=== PATIENT | female | born 1935 | race Caucasian/White ===

== ENCOUNTER 2017-02-15 21:39 | Inpatient (IN) | payer MEDICARE, MEDICAID ==
[~2017-02-15] VITALS: Ht 165.1 cm; Wt 70.3 kg
--- NOTE | 2017-02-15 22:09 | NUR ---
LAB AT BEDSIDE PER MD ORDERS.
--- NOTE | 2017-02-15 22:29 | NUR ---
PT BIB PRIVATE AMBULANCE FROM SNF FOR MEDICAL CLEARANCE FOR JOSE. VSS/RESP EVEN AND UNLABORED/NAD NOTED/SKIN WARM AND DRY. EMT'S STATES PT WAS HITTING OTHER RESIDENTS AND BEING AGRESSIVE WITH STAFF.
[2017-02-15] MEDS ORDERED: OLANZAPINE 5 MG/TAB.RAPDIS ONE (22:33)
[2017-02-15 22:37] LABS: BASOPHILS % (AUTO) 0.4 % (0.0-2.0); EOSINOPHILS % (AUTO) 0.3 % (0.0-6.0); HEMATOCRIT 47 % (33-45); HEMOGLOBIN 15.5 g/dL (11.5-14.8); LYMPHOCYTES # (AUTO) 3.1 /CMM (0.8-4.8); LYMPHOCYTES % (AUTO) 31.8 % (20.0-44.0); MEAN CORPUSCULAR HEMOGLOBIN 30 PG (26.0-33.0); MEAN CORPUSCULAR HGB CONC 33 g/dl (31.0-36.0); MEAN CORPUSCULAR VOLUME 90 fL (82-100); MONOCYTES # (AUTO) 1.9 /CMM (0.1-1.30); MONOCYTES % (AUTO) 19.8 % (2.0-12.0); NEUTROPHILS # (AUTO) 4.6 /CMM (1.8-8.9); NEUTROPHILS % (AUTO) 47.7 % (43.0-81.0); PLATELET COUNT (AUTO) 167 /CMM (150-450); RDW COEFFICIENT OF VARIATION 14.3 (11.5-15.0); RED BLOOD CELL COUNT(AUTO) 5.18 MIL/uL (4.0-5.2); WHITE BLOOD COUNT (AUTO) 9.7 K/uL (4.3-11.0)
[2017-02-15 22:38] LABS: CALCIUM, SERUM 9.4 mg/dL (8.5-10.1); CARBON DIOXIDE 26 mmol/L (21-32); CHLORIDE 107 mmol/L (98-107); GLUCOSE 177 mg/dL (74-106); SODIUM SERUM 144 mmol/L (136-145); UREA NITROGEN, BLOOD 24 mg/dL (7-18)
[2017-02-15 22:43] LABS: ALANINE AMINOTRANSFERASE 30 U/L (12-78); ALBUMIN 4.1 g/dL (3.4-5.0); ALCOHOL, BLOOD < 3 mg/dL (0-0); ALKALINE PHOSPHATASE 69 U/L (46-116); ASPARTATE AMINOTRANSFERASE 21 U/L (15-37); BILIRUBIN,DIRECT 0.2 mg/dL (0.0-0.2); BILIRUBIN,TOTAL 1.1 mg/dL (0.2-1.0); TOTAL PROTEIN, SERUM 8.6 g/dL (6.4-8.2)
[2017-02-15 22:47] LABS: ACETAMINOPHEN 0 ug/ml (10-30); SALICYLATE 1.3 mg/dL (2.8-20.0)
[2017-02-15] MEDS ORDERED: LORAZEPAM INJ 2 MG/ML VIAL ONE (22:54)
[2017-02-15] MEDS ORDERED: LORAZEPAM INJ 2 MG/ML VIAL IM ONE (23:00)
[2017-02-15] MEDS ORDERED: OLANZAPINE 5 MG/TAB.RAPDIS PO ONE (23:00)
[2017-02-15 23:49] LABS: LYMPHOCYTES % (MANUAL) 29 % (16-48); MONOCYTES % (MANUAL) 17 % (0-11.0); NEUTROPHILS % (MANUAL) 54 (42-76)
--- NOTE | 2017-02-15 23:57 | NUR ---
16 FR IN AND OUT CATH USING IN SHOP SERVICE TECHNICIAN, OBTAINED URINE SAMPLE AND SENT TO LAB PER MD ORDERS.
[2017-02-16 00:20] LABS: APPEARANCE,URINE SL CLOUDY (CLEAR); BILIRUBIN,URINE NEGATIVE (NEGATIVE); BLOOD, URINE 1+ Ery/uL (NEGATIVE); COLOR,URINE DARK YELLO (YELLOW); KETONES,URINE 2+ (NEGATIVE); LEUKOCYTE ESTERASE ,URINE 1+ (NEGATIVE); NITRITE, URINE POSITIVE (NEGATIVE); PROTEIN,URINE 2+ mg/dl (NEGATIVE); UGLUCOSE NEGATIVE (NEGATIVE)
[2017-02-16 00:41] LABS: BACTERIA,URINE Few /HPF (None Seen); SQUAMOUS EPITHELIAL CELL,UR Few /HPF (None Seen)
[2017-02-16] MEDS ORDERED: CEFTRIAXONE 1GM BAG (ER ONLY) 1 GM/50 ML PIGGYBACK IV ONE (01:00)
[2017-02-16] MEDS ORDERED: CEFTRIAXONE 1GM BAG (ER ONLY) 50 ML IV ONE (01:03)
--- NOTE | 2017-02-16 01:24 | NUR ---
PT BEING ADMIT TO [facility] BED 215, REPORT GIVEN TO MANDIE STORY.
[2017-02-16] MEDS ORDERED: DOCU-170 PO (01:26)
[2017-02-16] MEDS ORDERED: GEMF600T3 PO (01:26)
[2017-02-16] MEDS ORDERED: BENA20TA2 PO (01:26)
[2017-02-16] MEDS ORDERED: METF10002 PO (01:26)
[2017-02-16] MEDS ORDERED: LEVO50TA8 PO (01:26)
[2017-02-16] MEDS ORDERED: AMLO5TAB2 PO (01:26)
[2017-02-16] MEDS ORDERED: CALC500T51 PO (01:26)
[2017-02-16 02:00] VITALS: BP 107/64
[2017-02-16] MEDS ORDERED: MAG HYDROX/AL HYDROX/SIMETH 30 ML UDC PO PRN (02:00)
[2017-02-16] MEDS ORDERED: ACETAMINOPHEN 325 MG TABLET PO PRN (02:00)
[2017-02-16] MEDS ORDERED: TEMAZEPAM 7.5 MG CAPSULE PO PRN (02:00)
[2017-02-16] MEDS ORDERED: MAGNESIUM HYDROXIDE 30 ML UDC PO PRN (02:00)
--- NOTE | 2017-02-16 03:47 | NUR ---
GPS LINER ROLL CHANGER NOTES: ADMITTED A 81/ FEMALE FROM [facility] ON 5150 HOLD FOR DTO. PER HOLD THE PATIENT WAS AGITATED,TALKING NONSENSE, HITTING STAFF AND OTHER RESIDENTS IN THE ASSISTED, , HARMING OTHER MEDICALLY FRAGILE RESIDENTS BY REMOVING THEIR OXYGEN MASKS. PATIENT WILL BE UNDER THE CARE OF DR. CALDERÓN AND DR. KILGORE. PATIENT USHERED FROM GURNEY TO BED. UPON FACE TO FACE ASSESSMENT, PATIENT PRESENTS ALERT AND ORIENTED X1. NOTED TO BE CONFUSED, MUMBLING NON SENSICAL STUFF. PATIENT IS DISHEVELED, UNKEMPT, UNTIDY, DISORGANIZED, EASILY AGITATED, UNPREDICTABLE. REALITY ORIENTATION DONE. SKIN AND BODY ASSESSMENT DONE WITH VALERIE LUCIANO. PICTURES TAKEN AND PLACED IN THE CHART. BELONGINGS AND CONTRABAND CHECKED. Q15 MIN CHECKS INITIATED. CARE PLAN PATIENT SPECIFIC CARRIED OUT. WILL INFORM FAMILY OF PATIENTS ADMITTANCE TO THE UNIT. PATIENT CHANGED TO HER GOWN FOR COMFORT, BED IN LOW AND LOCKED POSITION. ENVIRONMENTAL SAFETY CHECK DONE. WILL MONITOR PATIENT FOR MOOD, SAFETY AND BEHAVIOR.
[2017-02-16] MEDS ORDERED: Z GUARD REMEDY 4 OZ OINT TP PRN (06:00)
--- NOTE | 2017-02-16 06:29 | NUR ---
GPS RN NOTE, PATIENT NEEDS A ACCU CHECK ORDER AND MED RECON. PAGED [facility] AND INFORMED DR MAGUI JIANG OF MY FINDINGS. DR MAGUI JIANG ORDERED TO DUE ACCU CHECK AC HS WITHOUT INSULIN COVERAGE AND SAID HE WILL DO THIS PATIENTS MED RECON. ALL ORDERS NOTED AND CARRIED OUT. WILL CONTINUE TO MONITOR THIS PATIENT.
[2017-02-16] MEDS: LEVOTHYROXINE SODIUM 50 MCG TABLET PO SCH (07:30)
[2017-02-16] MEDS: BLOOD SUGAR DIAGNOSTIC 1 EACH STRIP IN SCH ×4 (07:30→21:53)
[2017-02-16 08:00] VITALS: BP 163/88
--- NOTE | 2017-02-16 08:09 | NUR ---
GPS RN NOTE PATIENT REFUSING ACCUCHECK AND PO MEDICATIONS AT THIS TIME. PATIENT REFUSING ANY PO INTAKE. PATIENT REFUSING TO LISTEN TO ANYONE SPEAKING WITH HER. KICKS, BITS, TRIES TO BITE AND SPIT STAFF. PATIENT IS CALM WHEN SHE IS LEFT ALONE.
[2017-02-16] MEDS: METFORMIN 500 MG TABLET PO SCH ×2 (09:00→17:50)
[2017-02-16] MEDS: CALCIUM CARBONATE (1250) 500 MG TABLET PO SCH (09:00)
[2017-02-16] MEDS: DOCUSATE SODIUM 100 MG CAPSULE PO SCH (09:00)
[2017-02-16] MEDS: AMLODIPINE BESYLATE 5 MG TABLET PO SCH (09:00)
[2017-02-16] MEDS: BENAZEPRIL HCL 20 MG TABLET PO SCH (09:00)
[2017-02-16] MEDS: GEMFIBROZIL 600 MG TABLET PO SCH (09:00)
--- NOTE | 2017-02-16 09:11 | NUR ---
GPS RN NOTES PATIENT STILL REFUSING ALL PO MEDICATIONS. BECOMES AGITATED AND COMBATIVE WITH ANY COMMUNICATION
--- NOTE | 2017-02-16 09:27 | NUR ---
GPS RN NOTES PATIENT IS STILL REFUSING ALL ORAL PO MEDICATIONS AND INTAKE. WILL NOTIFY MD ON EVAL
[2017-02-16 09:28] VITALS: BP 152/82
--- NOTE | 2017-02-16 10:00 | NUR ---
GPS RN NOTES DR PAMELA HODGSON AT PATIENT SIDE. MD UPDATED ON PATIENT CONDITION. REFUSAL OF ANY ORAL INTAKE FOOD, WATER, OR MEDS AND PATIENT COMBATIVENESS. MD AWARE PATIENT POSITIVE FOR UTI AND UNABLE TO GIVE ANY ORAL AX ORDERED. PER MD HE WILL FOLLOW UP. NO ORDERS AT THIS TIME
--- NOTE | 2017-02-16 10:33 | NUR ---
GPS RN NOTES PATIENT IS MORE CALM AT THIS TIME. WILL NOT ALLOW ANYONE TO TOUCH HER HOWEVER SHE IS NOT YELLING AT STAFF AT THIS TIME.
--- NOTE | 2017-02-16 11:58 | NUR ---
GPS RN NOTES ATTEMPTED BLOOD SUGAR CHECK FOR PATIENT HOWEVER PATIENT IS STILL COMBATIVE AND HIT ME. DR CALDERÓN UPDATED ON PATIENT CONDITION AND REFUSAL FOR ANY MEDICATIONS
--- NOTE | 2017-02-16 14:00 | NUR ---
GPS RN NOTE PATIENT SLEEPING IN BED COMFORTABLY AT THIS TIME. NO S/S SOB, DIFFICULTY BREATHING OR PAIN. WILL CONTINUE TO MONITOR. BED ALARM ON
[2017-02-16] MEDS: LORAZEPAM 0.5 MG TABLET PO PRN (14:15)
--- NOTE | 2017-02-16 14:15 | NUR ---
GPS RN NOTES PATIENT AGGITATED AND ANXIOUS PRN ATIVAN GIVEN WITH ASSISTANCE FROM [employer]. PATIENT ALLOWED [employer] TO ASSIST WITH SHOWER.
[2017-02-16 16:00] VITALS: BP 140/85
[2017-02-16] MEDS ORDERED: HALOPERIDOL 1 MG TABLET PO SCH (17:00)
--- NOTE | 2017-02-16 17:06 | NUR ---
GPS RN NOTE PATIENT AGREEABLE TO ACCU CHECK. AT THIS TIME PATIENT REFUSES TO EAT. WILL HOLD INSULIN COVERAGE UNTIL/IF PATIENT EATS
--- NOTE | 2017-02-16 17:52 | NUR ---
GPS RN NOTES PATIENT IS COOPERATIVE AT THIS TIME. ANSWERING QUESTIONS AND THOUGHT PROCESS MORE INTACT. ABLE TO COMMUNICATE NAME AND . PATIENT SITTING UP EATING DINNER. MILD SLIDING SCALE ORDERED PER MD PAMELA HODGSON
[2017-02-16] MEDS ORDERED: DEXTROSE 50%-WATER 50 ML DISP.SYRIN IV PRN (18:00)
[2017-02-16] MEDS: INSULIN REGULAR, HUMAN 100 UNIT/ML 3 ML VIAL SQ PRN (18:28)
--- NOTE | 2017-02-16 19:30 | NUR ---
GPS RN NOTE, RECEIVED PATIENT AWAKE AND IN BED NO S/S OR COMPLAINTS OF PAIN AT THIS TIME. PATIENT IS DISPLAYING NO S/S OF APPARENT DISTRESS AT THIS TIME. PATIENT BREATHING IS UNLABORED WITH EQUAL RISE AND FALL OF THE CHEST. PATIENT IS ALERT AND ORIENTED X1 ON ROOM AIR WITH A SPOO2 95 %. PATIENT IS MED SELECTIVE, CONFUSED, COMBATIVE WITH CARE, DISORGANIZED, AND NEEDS REORIENTATION. PATIENT DENIES SUICIDE IDEATIONS AND HOMICIDAL IDEATIONS AT THIS TIME. PATIENT ASSISTED WITH TURNING AND REPOSITIONING Q2HR AND PRN FOR COMFORT AND CIRCULATION. PATIENT HAS NO NEEDS AT THIS TIME. PATIENT EDUCATED ON THE USE OF THE CALL LOPEZ. PATIENT BED SIDE RAILS UP X 2 FOR SAFETY. PATIENT BED IS LOCKED AND LOW WILL CONTINUE TO MONITOR AND MAINTAIN SAFETY Q15 MIN WITH THE HELP OF STAFF.
[2017-02-16 20:08] VITALS: BP 122/60
[2017-02-16] MEDS: VALPROIC ACID 250 MG/5 ML UDC PO SCH (21:53)
--- NOTE | 2017-02-16 21:53 | NUR ---
GPS RN NOTE, PERFORMED ACCU CHECK ON PATIENT WITH A BLOOD SUGAR RESULT OF 122. GAVE NO INSULIN PER SLIDING SCALE. WILL CONTINUE TO MONITOR THIS PATIENT.
[2017-02-17] MEDS: BLOOD SUGAR DIAGNOSTIC 1 EACH STRIP IN SCH ×4 (07:30→22:00)
[2017-02-17] MEDS: LEVOTHYROXINE SODIUM 50 MCG TABLET PO SCH (07:30)
[2017-02-17 08:00] VITALS: BP 110/69
[2017-02-17] MEDS: AMLODIPINE BESYLATE 5 MG TABLET PO SCH (09:00)
[2017-02-17] MEDS: CALCIUM CARBONATE (1250) 500 MG TABLET PO SCH (09:00)
[2017-02-17] MEDS: BENAZEPRIL HCL 20 MG TABLET PO SCH (09:00)
[2017-02-17] MEDS: VALPROIC ACID 250 MG/5 ML UDC PO SCH ×2 (09:00→21:00)
[2017-02-17] MEDS: GEMFIBROZIL 600 MG TABLET PO SCH (09:00)
[2017-02-17] MEDS: DOCUSATE SODIUM 100 MG CAPSULE PO SCH (09:00)
[2017-02-17] MEDS: METFORMIN 500 MG TABLET PO SCH ×2 (09:00→17:00)
--- NOTE | 2017-02-17 13:11 | NUR ---
Initial Discharge Note: Per son, patient resides at [facility] ([phone]) [address] [place] [address]. mud car worker spoke to patient's son Rajesh Johnson ([phone]) who stated that ideally the plan is for patient to return to [facility]. mud car worker spoke to the arts administrator or manager Areli from [facility] who stated that patient can return when she is stable and her behavior improves. mud car worker will help form a safe and proper discharge.
--- NOTE | 2017-02-17 14:52 | NUR ---
refuge worker asked patient's son Rajesh Johnson ([phone]) to provide conservatorship paperwork. Rajesh stated that he would email it to school social worker. refuge worker will follow-up.
--- NOTE | 2017-02-17 15:22 | NUR ---
social contact worker spoke to Sherine Nguyen, Senior Decorating Kiln Operator (SBN [id number]) [employer] ([phone]) who confirmed that patient's son Rajesh Johnson was granted conservatorship for person only. Sherine emailed professor of social work the paperwork which includes the nature of the proceedings: Hearing on Petition for Appointment of Conservatorship.
--- NOTE | 2017-02-17 15:30 | NUR ---
food service worker hospital attempted to contact patient's son/conservator Rajesh Johnson ([phone]) to obtain his email so that older adult social work specialist may email him the detain and treat paperwork. However, Rajesh was unavailable. food service worker hospital left him a detailed message with direct contact information.
[2017-02-17 15:46] VITALS: BP 115/72
[2017-02-17] MEDS: HALOPERIDOL 1 MG TABLET PO SCH (17:00)
[2017-02-17 19:53] VITALS: BP_SYST 114; BP_SYST 146; BP_DIAS 70; BP_DIAS 80
[2017-02-17] MEDS: NITROFURANTOIN/NITROFURAN MAC 100 MG CAPSULE PO SCH (21:00)
[2017-02-18 07:14] LABS: ALANINE AMINOTRANSFERASE 33 U/L (12-78); ALBUMIN 3.7 g/dL (3.4-5.0); ALKALINE PHOSPHATASE 62 U/L (46-116); ASPARTATE AMINOTRANSFERASE 25 U/L (15-37); BILIRUBIN,TOTAL 0.9 mg/dL (0.2-1.0); CALCIUM, SERUM 9.6 mg/dL (8.5-10.1); CARBON DIOXIDE 23 mmol/L (21-32); CHLORIDE 105 mmol/L (98-107); GLUCOSE 159 mg/dL (74-106); MAGNESIUM 2.1 mg/dL (1.8-2.4); PHOSPHORUS 3.7 mg/dL (2.5-4.9); POTASSIUM 3.6 mmol/L (3.5-5.1); SODIUM SERUM 142 mmol/L (136-145); UREA NITROGEN, BLOOD 34 mg/dL (7-18)
[2017-02-18 07:27] LABS: CHOLESTEROL 153 mg/dL (<200); HDL CHOLESTEROL 24 mg/dL (40-60); LDL 101 mg/dL (0-99); TRIGLYCERIDES 145 mg/dL (30-150)
[2017-02-18] MEDS: BLOOD SUGAR DIAGNOSTIC 1 EACH STRIP IN SCH ×4 (07:30→21:20)
[2017-02-18] MEDS: LEVOTHYROXINE SODIUM 50 MCG TABLET PO SCH (07:30)
--- NOTE | 2017-02-18 07:30 | NUR ---
GPS/RN PATIENT IS AGITATED AND COMBATIVE, ADAMANTLY REFUSED BS CHECK X 3, EXPLAINED RISKS AND BENEFITS HOWEVER, PATIENT IS CONFUSED AND CONTINUES TO REFUSE, WILL CONTINUE TO ENCOURAGE TO COMPLY WITH MD REGIMEN.
[2017-02-18] MEDS: LORAZEPAM 0.5 MG TABLET PO PRN (07:41)
--- NOTE | 2017-02-18 08:00 | NUR ---
GPS/RN PATENT AGITATED, COMBATIVE, REFUSING ALL A.M. MEDICATION X 3, EXPLAINED RISKS AND BENEFITS, WILL CONTINUE TO ENCOURAGE TO COMPLY WITH MD REGIMEN.
--- NOTE | 2017-02-18 08:00 | NUR ---
GPS/RN PATIENT IS AGGRESSIVE, COMBATIVE AND AGITATED, REFUSING TO ALLOW STAFF TO TAKE VITAL SIGNS. WILL CONTINUE TO ENCOURAGE TO COMPLY WITH REGIMEN.
[2017-02-18] MEDS: CALCIUM CARBONATE (1250) 500 MG TABLET PO SCH (09:00)
[2017-02-18] MEDS: GEMFIBROZIL 600 MG TABLET PO SCH (09:00)
[2017-02-18] MEDS: METFORMIN 500 MG TABLET PO SCH ×2 (09:00→16:24)
[2017-02-18] MEDS: VALPROIC ACID 250 MG/5 ML UDC PO SCH ×2 (09:00→21:00)
[2017-02-18] MEDS: BENAZEPRIL HCL 20 MG TABLET PO SCH (09:00)
[2017-02-18] MEDS: AMLODIPINE BESYLATE 5 MG TABLET PO SCH (09:00)
[2017-02-18] MEDS: DOCUSATE SODIUM 100 MG CAPSULE PO SCH (09:00)
[2017-02-18] MEDS: NITROFURANTOIN/NITROFURAN MAC 100 MG CAPSULE PO SCH ×2 (09:00→21:00)
[2017-02-18] MEDS: HALOPERIDOL 1 MG TABLET PO SCH ×2 (09:00→16:24)
--- NOTE | 2017-02-18 12:00 | NUR ---
GPS/RN PATIENT CONTINUES TO BE AGITATED, AGGRESSIVE AND ANXIOUS, ADAMANTLY REFUSED BS CHECK X 3, EXPLAINED RISKS AND BENEFITS, WILL CONTINUE TO ENCOURAGE TO COMPLY WITH MD REGIMEN.
[2017-02-18 16:00] VITALS: BP 122/89
--- NOTE | 2017-02-18 16:25 | NUR ---
GPS/RN PATENT IS AGITATED AND ANXIOUS, REFUSING ALL 1700 MEDICATION X 3, EXPLAINED RISKS AND BENEFITS, WILL CONTINUE TO ENCOURAGE TO COMPLY WITH MD REGIMEN.
--- NOTE | 2017-02-18 17:09 | NUR ---
GPS/RN PATIENT CONTINUES TO ADAMANTLY REFUSE BS CHECK, OFFERED X 3, EXPLAINED RISKS AND BENEFITS,CONTINUES TO REFUSE, WILL CONTINUE TO ENCOURAGE TO COMPLY WITH MD REGIMEN.
[2017-02-18 20:00] VITALS: BP 140/90
--- NOTE | 2017-02-18 21:13 | NUR ---
GPS/STONE BREAKER NOTES: PT. REFUSED ALL HS MEDS. OFFERED 3X. EXPLAINED RISK AND BENEFITS. PT. STILL REFUSED. WILL CONTINUE TO MONITOR.
[2017-02-18] MEDS: INSULIN REGULAR, HUMAN 100 UNIT/ML 3 ML VIAL SQ PRN (21:20)
--- NOTE | 2017-02-18 21:20 | NUR ---
GPS/SLAG MOTOR OPERATOR NOTES: ACCUCHECK DONE. BS NOTED AT 165. PT. REFUSED INSULIN COVERAGE PER SLIDING SCALE ORDERED. OFFERED 3X. EXPLAINED RISK AND BENEFITS. PT. STILL REFUSED.
[2017-02-19] MEDS: LEVOTHYROXINE SODIUM 50 MCG TABLET PO SCH (07:30)
--- NOTE | 2017-02-19 07:43 | NUR ---
[id number]: BLOOD SUGAR IS 139 MG/DL AND REFUSED INSULIN COVERAGE
[2017-02-19] MEDS: BLOOD SUGAR DIAGNOSTIC 1 EACH STRIP IN SCH ×4 (08:01→21:32)
[2017-02-19] MEDS: DOCUSATE SODIUM 100 MG CAPSULE PO SCH (08:43)
[2017-02-19] MEDS: BENAZEPRIL HCL 20 MG TABLET PO SCH (08:44)
[2017-02-19] MEDS: GEMFIBROZIL 600 MG TABLET PO SCH (08:44)
[2017-02-19] MEDS: VALPROIC ACID 250 MG/5 ML UDC PO SCH ×2 (08:44→21:23)
[2017-02-19] MEDS: HALOPERIDOL 1 MG TABLET PO SCH (08:44)
[2017-02-19] MEDS: METFORMIN 500 MG TABLET PO SCH ×2 (08:44→16:07)
[2017-02-19] MEDS: NITROFURANTOIN/NITROFURAN MAC 100 MG CAPSULE PO SCH ×2 (08:44→21:23)
[2017-02-19] MEDS: AMLODIPINE BESYLATE 5 MG TABLET PO SCH (08:45)
[2017-02-19] MEDS: CALCIUM CARBONATE (1250) 500 MG TABLET PO SCH (08:45)
[2017-02-19] MEDS: LORAZEPAM 0.5 MG TABLET PO PRN (11:57)
--- NOTE | 2017-02-19 11:57 | NUR ---
[id number]: GAVE ATIVAN 0.5 MG PO DUE TO INCREASED ANXIETY UPON PT REQUEST AND WILL CONTINUE TO MONITOR FOR EFFECTIVENESS OF MEDICATION
--- NOTE | 2017-02-19 12:00 | NUR ---
[id number]: PT REFUSED BLOOD SUGAR CHECK.
[2017-02-19] MEDS: HALOPERIDOL 5 MG TABLET PO SCH ×2 (13:00→21:23)
--- NOTE | 2017-02-19 15:05 | NUR ---
jet worker attempted (twice) to contact patient's son/conservator Rajesh Johnson ([phone]) to obtain his email so that medical social consultant may email him the detain and treat paperwork. However, Rajesh was unavailable. jet worker left him a detailed message with direct contact information.
--- NOTE | 2017-02-19 16:00 | NUR ---
shop worker spoke to patient's son/conservator Rajesh Johnson , and asked if he could provide an email address so the SW may email the detain and treat form. shop worker emailed the detain and treat form to [email or web address]. shop worker will follow-up.
[2017-02-19] MEDS: INSULIN REGULAR, HUMAN 100 UNIT/ML 3 ML VIAL SQ PRN (16:46)
--- NOTE | 2017-02-19 16:46 | NUR ---
[id number]: BLOOD SUGAR IS 183 MG/DL AND GAVE 3 UNITS OF REGULAR INSULIN
[2017-02-19 20:00] VITALS: BP 145/61
[2017-02-20] MEDS: INSULIN REGULAR, HUMAN 100 UNIT/ML 3 ML VIAL SQ PRN ×2 (00:45→21:41)
--- NOTE | 2017-02-20 00:47 | NUR ---
GPS/RN NOTE: LATE ENTRY: ACCUCHECK 133 MG/DL, 3 UNITS REG. INSULIN SC REFUSED. PATIENT VERY UNCOOPERATIVE. OFFERED X2, STILL REFUSED.
[2017-02-20] MEDS: BLOOD SUGAR DIAGNOSTIC 1 EACH STRIP IN SCH ×4 (07:30→21:39)
[2017-02-20 08:00] VITALS: BP 139/85
--- NOTE | 2017-02-20 08:20 | NUR ---
ms rn patient refused to take bloos sugar, no distress noted.
[2017-02-20] MEDS: GEMFIBROZIL 600 MG TABLET PO SCH (10:13)
[2017-02-20] MEDS: VALPROIC ACID 250 MG/5 ML UDC PO SCH ×2 (10:13→20:52)
[2017-02-20] MEDS: CALCIUM CARBONATE (1250) 500 MG TABLET PO SCH (10:13)
[2017-02-20] MEDS: HALOPERIDOL 5 MG TABLET PO SCH ×2 (10:13→20:52)
[2017-02-20] MEDS: DOCUSATE SODIUM 100 MG CAPSULE PO SCH (10:13)
[2017-02-20] MEDS: METFORMIN 500 MG TABLET PO SCH ×2 (10:13→17:46)
[2017-02-20] MEDS: NITROFURANTOIN/NITROFURAN MAC 100 MG CAPSULE PO SCH ×2 (10:13→20:52)
[2017-02-20] MEDS: AMLODIPINE BESYLATE 5 MG TABLET PO SCH (10:14)
[2017-02-20] MEDS: LEVOTHYROXINE SODIUM 50 MCG TABLET PO SCH (10:14)
[2017-02-20] MEDS: BENAZEPRIL HCL 20 MG TABLET PO SCH (10:14)
--- NOTE | 2017-02-20 12:00 | NUR ---
ms rn refusing again to check blood sugar.
[2017-02-20 16:00] VITALS: BP 149/81
--- NOTE | 2017-02-20 17:20 | NUR ---
ms rn was able to take blood sugar -132 but refused for coverage.
--- NOTE | 2017-02-20 19:51 | NUR ---
GPS/RN NOTE: PATIENT AWAKE, ALERT, CONFUSED, INTERACTS WHEN ENGAGED, NO ACUTE DISTRESS NOTED. HAS 1:1 SITTER FOR SAFETY. ENVIRONMENTAL CHECK DONE AND IS CLEAR OF ANY CONTRABAND. WILL CONTINUE TO MONITOR Q 15 MINS. TO MAINTAIN SAFETY.
[2017-02-20 20:00] VITALS: BP 159/75
--- NOTE | 2017-02-20 21:43 | NUR ---
GPS/RN NOTE: ACCUCHECK 133 MG/DL, 2 UNITS REG. INSULIN SC ADMINISTERED. APPLE JUICE GIVEN.
[2017-02-21] MEDS: BLOOD SUGAR DIAGNOSTIC 1 EACH STRIP IN SCH ×4 (07:47→21:53)
[2017-02-21] MEDS: INSULIN REGULAR, HUMAN 100 UNIT/ML 3 ML VIAL SQ PRN ×2 (07:58→21:56)
--- NOTE | 2017-02-21 07:59 | NUR ---
MEDICAL RECORDS MANAGER-NOTES PATIENT BLOOD SUGAR WAS 145MG/DL, 2 UNITS OF R INSULIN GIVEN ORDERED.
[2017-02-21 08:00] VITALS: BP 148/77
[2017-02-21] MEDS: LEVOTHYROXINE SODIUM 50 MCG TABLET PO SCH (08:29)
[2017-02-21] MEDS: DOCUSATE SODIUM 100 MG CAPSULE PO SCH (09:56)
[2017-02-21] MEDS: CALCIUM CARBONATE (1250) 500 MG TABLET PO SCH (09:56)
[2017-02-21] MEDS: GEMFIBROZIL 600 MG TABLET PO SCH (09:56)
[2017-02-21] MEDS: HALOPERIDOL 5 MG TABLET PO SCH ×2 (09:56→20:57)
[2017-02-21] MEDS: VALPROIC ACID 250 MG/5 ML UDC PO SCH ×2 (09:56→20:57)
[2017-02-21] MEDS: BENAZEPRIL HCL 20 MG TABLET PO SCH (09:57)
[2017-02-21] MEDS: METFORMIN 500 MG TABLET PO SCH ×2 (09:57→17:00)
[2017-02-21] MEDS: AMLODIPINE BESYLATE 5 MG TABLET PO SCH (09:57)
[2017-02-21] MEDS: NITROFURANTOIN/NITROFURAN MAC 100 MG CAPSULE PO SCH ×2 (09:57→20:57)
--- NOTE | 2017-02-21 12:37 | NUR ---
PHOTOENGRAVING SKETCH MAKER-NOTES PATIENT BLOOD SUGAR WAS 203MG/DL,REFUSED 4 UNITS INSULIN COVERAGE DESPITE EXPLANATIONS RISK AND BENEFITS. PATIENT GETS ANGRY AND AGGRESSIVE AT THE BRAKE OPERATOR HEAVY DUTY. OFFERED X3
[2017-02-21] MEDS ORDERED: hydrALAZINE HCL 25 MG TABLET PO PRN (15:30)
[2017-02-21 16:05] VITALS: BP 131/84
--- NOTE | 2017-02-21 17:09 | NUR ---
TEMPORARY STAFF ACCOUNTANT-NOTES PATIENT BLOOD SUGAR WAS 131 MG/DL,REFUSED 2 UNITS INSULIN COVERAGE AND GLUCOPHAGE 100MG P.O EXPLAINED RISK AND BENEFITS BUT PATIENT GETS ANGRY AND AGGRESSIVE AT THE GENERAL FARMWORKER. OFFERED X3
[2017-02-21 20:00] VITALS: BP 144/78
--- NOTE | 2017-02-22 06:52 | NUR ---
RN GPS NOTES REMAINED 1:1 SITTER AT BED SIDE FOR PT. SAFETY , NO ACUTE DISTRESS NOTED, WILL ENDORSE TO NEXT SHIFT FOR CONTINUITY OF CARE .
[2017-02-22] MEDS: LEVOTHYROXINE SODIUM 50 MCG TABLET PO SCH (07:50)
[2017-02-22] MEDS: AMLODIPINE BESYLATE 5 MG TABLET PO SCH ×2 (07:51→08:05)
[2017-02-22] MEDS: BLOOD SUGAR DIAGNOSTIC 1 EACH STRIP IN SCH ×4 (07:57→22:14)
[2017-02-22] MEDS: INSULIN REGULAR, HUMAN 100 UNIT/ML 3 ML VIAL SQ PRN ×4 (07:59→22:16)
--- NOTE | 2017-02-22 07:59 | NUR ---
[id number]: BLOOD SUGAR IS 135 MG /DL AND GAVE 2 UNITS OF REGULAR INSULIN.
[2017-02-22 08:00] VITALS: BP 142/81
[2017-02-22] MEDS: GEMFIBROZIL 600 MG TABLET PO SCH (08:04)
[2017-02-22] MEDS: METFORMIN 500 MG TABLET PO SCH ×2 (08:04→16:40)
[2017-02-22] MEDS: BENAZEPRIL HCL 20 MG TABLET PO SCH (08:04)
[2017-02-22] MEDS: DOCUSATE SODIUM 100 MG CAPSULE PO SCH (08:04)
[2017-02-22] MEDS: NITROFURANTOIN/NITROFURAN MAC 100 MG CAPSULE PO SCH ×2 (08:04→21:23)
[2017-02-22] MEDS: HALOPERIDOL 5 MG TABLET PO SCH ×2 (08:05→21:23)
[2017-02-22] MEDS: CALCIUM CARBONATE (1250) 500 MG TABLET PO SCH (08:05)
[2017-02-22] MEDS: VALPROIC ACID 250 MG/5 ML UDC PO SCH ×2 (08:06→21:23)
--- NOTE | 2017-02-22 11:50 | NUR ---
[id number]: BLOOD SUGAR IS 340 MG/DL AND GAVE 8 UNITS OF REGULAR INSULIN
[2017-02-22 15:15] VITALS: BP 161/102
--- NOTE | 2017-02-22 17:19 | NUR ---
[id number]: BLOOD SUGAR IS 322 MG/DL AND GAVE 8 UNITS OF REGULAR INSULIN
[2017-02-22 19:17] LABS: CALCIUM, SERUM 9.8 mg/dL (8.5-10.1); CARBON DIOXIDE 26 mmol/L (21-32); CHLORIDE 100 mmol/L (98-107); CREATININE 1.2 mg/dL (0.6-1.3); GLUCOSE 319 mg/dL (74-106); MAGNESIUM 1.9 mg/dL (1.8-2.4); PHOSPHORUS 2.4 mg/dL (2.5-4.9); POTASSIUM 3.8 mmol/L (3.5-5.1); SODIUM SERUM 137 mmol/L (136-145); UREA NITROGEN, BLOOD 11 mg/dL (7-18)
[2017-02-22 20:03] VITALS: BP 152/89
[2017-02-22 23:00] VITALS: BP 135/80
[2017-02-23] MEDS: BLOOD SUGAR DIAGNOSTIC 1 EACH STRIP IN SCH ×4 (07:35→22:43)
[2017-02-23] MEDS: INSULIN REGULAR, HUMAN 100 UNIT/ML 3 ML VIAL SQ PRN ×3 (07:36→22:51)
--- NOTE | 2017-02-23 07:36 | NUR ---
[id number]: BLOOD SUGAR IS 142 MG/DL AND GAVE 2 UNITS OF REGULAR INSULIN.
[2017-02-23 08:00] VITALS: BP 107/68
[2017-02-23] MEDS: LEVOTHYROXINE SODIUM 50 MCG TABLET PO SCH (08:13)
[2017-02-23] MEDS: DOCUSATE SODIUM 100 MG CAPSULE PO SCH (08:14)
[2017-02-23] MEDS: HALOPERIDOL 5 MG TABLET PO SCH ×2 (08:14→21:21)
[2017-02-23] MEDS: VALPROIC ACID 250 MG/5 ML UDC PO SCH ×2 (08:14→21:21)
[2017-02-23] MEDS: METFORMIN 500 MG TABLET PO SCH ×2 (08:14→16:18)
[2017-02-23] MEDS: NITROFURANTOIN/NITROFURAN MAC 100 MG CAPSULE PO SCH ×2 (08:15→21:21)
[2017-02-23] MEDS: BENAZEPRIL HCL 20 MG TABLET PO SCH (08:15)
[2017-02-23] MEDS: GEMFIBROZIL 600 MG TABLET PO SCH (08:15)
[2017-02-23] MEDS: AMLODIPINE BESYLATE 5 MG TABLET PO SCH (08:15)
[2017-02-23] MEDS: CALCIUM CARBONATE (1250) 500 MG TABLET PO SCH (08:18)
--- NOTE | 2017-02-23 10:17 | NUR ---
fish hatchery worker left patient's son/conservator Rajesh Johnson , a voicemail regarding the detain and treat form. Patient's son emailed social security specialist a picture of the form and when printed is not legible. fish hatchery worker asked Rajesh if he could please fax to ([phone]) or if he could scan the form and email it. fish hatchery worker will follow-up.
--- NOTE | 2017-02-23 12:08 | NUR ---
[id number]: BLOOD SUGAR IS 143 MG/DL AND GAVE 2 UNITS OF REGULAR INSULIN
--- NOTE | 2017-02-23 13:00 | NUR ---
[id number]: SPOKE TO DR. BONE AND AGREED THAT THE PRINT-OUT FORM FOR DETAIN AND TREAT IS OK TO FILE.
--- NOTE | 2017-02-23 16:00 | NUR ---
[id number]: BLOOD SUGAR IS 121 MG/DL AND NO INSULIN REQUIRED AT THIS TIME
[2017-02-23 16:23] VITALS: BP 110/65
[2017-02-23 20:31] VITALS: BP 98/54
--- NOTE | 2017-02-24 07:24 | NUR ---
[id number]: BLOOD SUGAR IS 119 MG/DL AND NO INSULIN REQUIRED AT THIS TIME
[2017-02-24 08:00] VITALS: BP 99/66
[2017-02-24] MEDS: BLOOD SUGAR DIAGNOSTIC 1 EACH STRIP IN SCH ×4 (08:56→21:28)
[2017-02-24] MEDS: LEVOTHYROXINE SODIUM 50 MCG TABLET PO SCH (08:56)
[2017-02-24] MEDS: VALPROIC ACID 250 MG/5 ML UDC PO SCH ×2 (08:56→21:28)
[2017-02-24] MEDS: DOCUSATE SODIUM 100 MG CAPSULE PO SCH (08:56)
[2017-02-24] MEDS: HALOPERIDOL 5 MG TABLET PO SCH ×4 (08:57→21:28)
[2017-02-24] MEDS: NITROFURANTOIN/NITROFURAN MAC 100 MG CAPSULE PO SCH ×2 (08:57→21:28)
[2017-02-24] MEDS: BENAZEPRIL HCL 20 MG TABLET PO SCH (08:57)
[2017-02-24] MEDS: METFORMIN 500 MG TABLET PO SCH ×2 (08:57→17:25)
[2017-02-24] MEDS: GEMFIBROZIL 600 MG TABLET PO SCH (08:57)
[2017-02-24] MEDS: AMLODIPINE BESYLATE 5 MG TABLET PO SCH (08:57)
[2017-02-24] MEDS: CALCIUM CARBONATE (1250) 500 MG TABLET PO SCH (08:58)
[2017-02-24] MEDS: INSULIN REGULAR, HUMAN 100 UNIT/ML 3 ML VIAL SQ PRN (12:42)
--- NOTE | 2017-02-24 12:42 | NUR ---
[id number]: BLOOD SUGAR IS 200 MG /DL AND GAVE 3 UNITS OF REGULAR INSULIN
[2017-02-24 16:02] VITALS: BP 147/76
[2017-02-24 20:41] VITALS: BP 140/73
[2017-02-25] MEDS: LEVOTHYROXINE SODIUM 50 MCG TABLET PO SCH (07:52)
[2017-02-25 08:00] VITALS: BP 122/72
[2017-02-25] MEDS: BLOOD SUGAR DIAGNOSTIC 1 EACH STRIP IN SCH ×4 (08:02→21:45)
[2017-02-25] MEDS: INSULIN REGULAR, HUMAN 100 UNIT/ML 3 ML VIAL SQ PRN ×4 (08:04→21:45)
[2017-02-25] MEDS: VALPROIC ACID 250 MG/5 ML UDC PO SCH ×2 (09:02→21:21)
[2017-02-25] MEDS: AMLODIPINE BESYLATE 5 MG TABLET PO SCH (09:02)
[2017-02-25] MEDS: GEMFIBROZIL 600 MG TABLET PO SCH (09:03)
[2017-02-25] MEDS: NITROFURANTOIN/NITROFURAN MAC 100 MG CAPSULE PO SCH ×2 (09:03→21:21)
[2017-02-25] MEDS: CALCIUM CARBONATE (1250) 500 MG TABLET PO SCH (09:03)
[2017-02-25] MEDS: HALOPERIDOL 5 MG TABLET PO SCH ×3 (09:03→21:21)
[2017-02-25] MEDS: DOCUSATE SODIUM 100 MG CAPSULE PO SCH (09:03)
[2017-02-25] MEDS: METFORMIN 500 MG TABLET PO SCH ×2 (09:03→16:41)
[2017-02-25] MEDS: BENAZEPRIL HCL 20 MG TABLET PO SCH (09:03)
--- NOTE | 2017-02-25 16:08 | NUR ---
RN NOTES PT EVALUATED BY SOFT MUD MOLDER WITH RECOMMENDATIONS TO PUT PT ON CARDIAC CCHO 60GM DIET AND TO PROVIDE ADEQUATE HYDRATION. WILL CONTINUE TO MONITOR.
[2017-02-25 16:25] VITALS: BP 100/51
[2017-02-25 19:59] VITALS: BP 124/74
[2017-02-26] MEDS: LEVOTHYROXINE SODIUM 50 MCG TABLET PO SCH (07:30)
[2017-02-26] MEDS: BLOOD SUGAR DIAGNOSTIC 1 EACH STRIP IN SCH ×4 (07:30→21:54)
--- NOTE | 2017-02-26 07:30 | NUR ---
GPS/RN PATIENT REFUSED BS CHECK X 3, EXPLAINED RISKS AND BENEFITS, WILL CONTINUE TO ENCOURAGE TO COMPLY WITH REGIMEN.
[2017-02-26 08:00] VITALS: BP 116/77
[2017-02-26] MEDS: DOCUSATE SODIUM 100 MG CAPSULE PO SCH (09:00)
[2017-02-26] MEDS: GEMFIBROZIL 600 MG TABLET PO SCH (09:00)
[2017-02-26] MEDS: METFORMIN 500 MG TABLET PO SCH ×2 (09:00→17:23)
[2017-02-26] MEDS: BENAZEPRIL HCL 20 MG TABLET PO SCH (09:00)
[2017-02-26] MEDS: NITROFURANTOIN/NITROFURAN MAC 100 MG CAPSULE PO SCH ×2 (09:00→20:47)
[2017-02-26] MEDS: HALOPERIDOL 5 MG TABLET PO SCH ×3 (09:00→20:47)
[2017-02-26] MEDS: VALPROIC ACID 250 MG/5 ML UDC PO SCH ×2 (09:00→20:47)
[2017-02-26] MEDS: AMLODIPINE BESYLATE 5 MG TABLET PO SCH (09:00)
[2017-02-26] MEDS: CALCIUM CARBONATE (1250) 500 MG TABLET PO SCH (09:00)
[2017-02-26] MEDS: HALOPERIDOL LACTATE INJ 5 MG/ML VIAL IM PRN (10:35)
--- NOTE | 2017-02-26 10:44 | NUR ---
GPS/RN PATIENT REFUSED HALDOL PO 5 MG THIS A.M. , ADMINISTERED HALDOL 5MG IM ORDERED FOR REFUSAL OF PO HALDOL. Addendum: 02/26/17 at 1142 by TONIA KINSEY RN REFUSED HALDOL PO 5MG X 3, EXPLAINED RISKS AND BENEFITS.
--- NOTE | 2017-02-26 11:40 | NUR ---
GPS/RN PATIENT REFUSED BS CHECK X 3, EXPLAINED RISKS AND BENEFITS, WILL CONTINUE TO ENCOURAGE TO COMPLY WITH REGIMEN.
[2017-02-26 16:39] VITALS: BP 140/86
--- NOTE | 2017-02-26 17:35 | NUR ---
GPS/RN BS 111,PER SLIDING SCALE NO COVERAGE NEEDED. WILL CONTINUE TO MONITOR.
[2017-02-26 20:00] VITALS: BP 142/80
--- NOTE | 2017-02-26 20:00 | NUR ---
GPS RN NOTES RECEIVED PTS ON BED AWAKE ALERT XI CONFUSED ABLE TO MAKE NEEDS KNOWN . NO SOB NO DISTRESS NOTED , NO COMPLAIN OF PAIN , V/S STABLE AFEBRILE . ALL NEEDS ATTENDED TOO, PTS IS CALM AND COOPERATIVE , DUE MEDS GIVEN ORDERED. KEPT PTS CLEAN DRY AND COMFORTABLE.WILL CONTINUE TO MONITOR PTS.
[2017-02-26] MEDS: INSULIN REGULAR, HUMAN 100 UNIT/ML 3 ML VIAL SQ PRN (21:53)
--- NOTE | 2017-02-26 22:00 | NUR ---
GPS RN NOTES BLOOD SUGAR FOR 10 PM IS 117MG/DL =NO COVERAGE GIVEN PER SLIDING SCALE . WILL CHECK BLOOD SUGAR AGAIN IN AM.
--- NOTE | 2017-02-27 | NUR ---
GPS RN NOTES PTS IS SLEEPING COMFORTABLY IN BED , NO SIGNIFICANT CHANGE NOTED.
[2017-02-27 06:53] LABS: BASOPHILS % (AUTO) 0.3 % (0.0-2.0); EOSINOPHILS % (AUTO) 0.6 % (0.0-6.0); HEMATOCRIT 39 % (33-45); HEMOGLOBIN 13.3 g/dL (11.5-14.8); LYMPHOCYTES # (AUTO) 2.6 /CMM (0.8-4.8); LYMPHOCYTES % (AUTO) 34.5 % (20.0-44.0); MEAN CORPUSCULAR HEMOGLOBIN 31 PG (26.0-33.0); MEAN CORPUSCULAR HGB CONC 34 g/dl (31.0-36.0); MEAN CORPUSCULAR VOLUME 89 fL (82-100); MONOCYTES # (AUTO) 1.3 /CMM (0.1-1.30); MONOCYTES % (AUTO) 17.9 % (2.0-12.0); NEUTROPHILS # (AUTO) 3.5 /CMM (1.8-8.9); NEUTROPHILS % (AUTO) 46.7 % (43.0-81.0); PLATELET COUNT (AUTO) 101 /CMM (150-450); RDW COEFFICIENT OF VARIATION 13.7 (11.5-15.0); RED BLOOD CELL COUNT(AUTO) 4.32 MIL/uL (4.0-5.2); WHITE BLOOD COUNT (AUTO) 7.6 K/uL (4.3-11.0)
[2017-02-27 07:02] LABS: CALCIUM, SERUM 8.8 mg/dL (8.5-10.1); CARBON DIOXIDE 29 mmol/L (21-32); CHLORIDE 106 mmol/L (98-107); CREATININE 0.9 mg/dL (0.6-1.3); GLUCOSE 128 mg/dL (74-106); MAGNESIUM 1.9 mg/dL (1.8-2.4); POTASSIUM 3.9 mmol/L (3.5-5.1); SODIUM SERUM 143 mmol/L (136-145); UREA NITROGEN, BLOOD 18 mg/dL (7-18)
[2017-02-27] MEDS: BLOOD SUGAR DIAGNOSTIC 1 EACH STRIP IN SCH ×4 (07:30→21:18)
[2017-02-27 08:06] VITALS: BP 128/77
[2017-02-27] MEDS: LEVOTHYROXINE SODIUM 50 MCG TABLET PO SCH (08:34)
[2017-02-27] MEDS: CALCIUM CARBONATE (1250) 500 MG TABLET PO SCH (08:35)
[2017-02-27] MEDS: NITROFURANTOIN/NITROFURAN MAC 100 MG CAPSULE PO SCH ×2 (08:35→21:16)
[2017-02-27] MEDS: AMLODIPINE BESYLATE 5 MG TABLET PO SCH (08:35)
[2017-02-27] MEDS: VALPROIC ACID 250 MG/5 ML UDC PO SCH ×2 (08:35→21:17)
[2017-02-27] MEDS: METFORMIN 500 MG TABLET PO SCH ×2 (08:36→17:00)
[2017-02-27] MEDS: GEMFIBROZIL 600 MG TABLET PO SCH (08:36)
[2017-02-27] MEDS: HALOPERIDOL 5 MG TABLET PO SCH ×3 (08:36→21:16)
[2017-02-27] MEDS: BENAZEPRIL HCL 20 MG TABLET PO SCH (08:36)
[2017-02-27] MEDS: DOCUSATE SODIUM 100 MG CAPSULE PO SCH (08:36)
[2017-02-27 09:13] LABS: LYMPHOCYTES % (MANUAL) 31 % (16-48); MONOCYTES % (MANUAL) 22 % (0-11.0); NEUTROPHILS % (MANUAL) 47 (42-76)
[2017-02-27 16:16] VITALS: BP 147/77
[2017-02-27 20:00] VITALS: BP 155/95
[2017-02-27 22:00] VITALS: BP 137/82
[2017-02-28] MEDS: LEVOTHYROXINE SODIUM 50 MCG TABLET PO SCH ×2 (07:30→09:46)
[2017-02-28 08:00] VITALS: BP 133/75
[2017-02-28] MEDS: BLOOD SUGAR DIAGNOSTIC 1 EACH STRIP IN SCH ×4 (08:08→22:09)
--- NOTE | 2017-02-28 08:15 | NUR ---
REFUSED INSULIN IN AM.
[2017-02-28] MEDS: METFORMIN 500 MG TABLET PO SCH ×3 (09:00→17:00)
[2017-02-28] MEDS: CALCIUM CARBONATE (1250) 500 MG TABLET PO SCH ×2 (09:00→09:45)
[2017-02-28] MEDS: NITROFURANTOIN/NITROFURAN MAC 100 MG CAPSULE PO SCH ×3 (09:00→21:21)
[2017-02-28] MEDS: DOCUSATE SODIUM 100 MG CAPSULE PO SCH ×2 (09:00→09:46)
[2017-02-28] MEDS: VALPROIC ACID 250 MG/5 ML UDC PO SCH ×3 (09:00→21:22)
[2017-02-28] MEDS: GEMFIBROZIL 600 MG TABLET PO SCH ×2 (09:00→09:47)
[2017-02-28] MEDS: BENAZEPRIL HCL 20 MG TABLET PO SCH ×2 (09:00→09:47)
[2017-02-28] MEDS: AMLODIPINE BESYLATE 5 MG TABLET PO SCH ×2 (09:00→09:46)
--- NOTE | 2017-02-28 09:00 | NUR ---
REFUSED ALL AM MEDS EXCEPT HALDOL PO.
[2017-02-28] MEDS: HALOPERIDOL 5 MG TABLET PO SCH ×3 (09:46→21:21)
[2017-02-28] MEDS: HALOPERIDOL LACTATE INJ 5 MG/ML VIAL IM PRN (13:47)
--- NOTE | 2017-02-28 13:54 | NUR ---
HALDOL INJECTABLE GIVEN PT. REFUSING PO HALDOL.
[2017-02-28 16:00] VITALS: BP 125/71
--- NOTE | 2017-02-28 17:23 | NUR ---
REFUSED GLUCOPHAGE AND INSULIN COVERAGE.
[2017-02-28 20:00] VITALS: BP 107/43
--- NOTE | 2017-02-28 22:00 | NUR ---
GPS RN NOTES : PT. BLOOD SUGAR 138 MG/DL , PT. REFUSED COVERAGE , ENCOURAGED X3 STILL REFUSED, WILL CONTINUE TO ENCOURAGED.
[2017-02-28] MEDS: INSULIN REGULAR, HUMAN 100 UNIT/ML 3 ML VIAL SQ PRN (23:13)
[2017-03-01 06:21] VITALS: BP 114/69
[2017-03-01] MEDS: BLOOD SUGAR DIAGNOSTIC 1 EACH STRIP IN SCH ×4 (07:30→21:55)
[2017-03-01] MEDS: LEVOTHYROXINE SODIUM 50 MCG TABLET PO SCH (07:30)
--- NOTE | 2017-03-01 07:30 | NUR ---
RN NOTES PT IN DAYROOM HAVING BREAKFAST. APPEARS CALM AT THIS TIME. NOT IN ANY DISTRESS. 1:1 SITTER. WILL CONT TO MONITOR.
[2017-03-01 08:23] VITALS: BP 120/86
[2017-03-01] MEDS: DOCUSATE SODIUM 100 MG CAPSULE PO SCH (08:55)
[2017-03-01] MEDS: VALPROIC ACID 250 MG/5 ML UDC PO SCH ×2 (08:55→20:57)
[2017-03-01] MEDS: METFORMIN 500 MG TABLET PO SCH ×2 (08:56→16:50)
[2017-03-01] MEDS: HALOPERIDOL 5 MG TABLET PO SCH ×3 (08:56→20:57)
[2017-03-01] MEDS: BENAZEPRIL HCL 20 MG TABLET PO SCH (08:57)
[2017-03-01] MEDS: CALCIUM CARBONATE (1250) 500 MG TABLET PO SCH (08:58)
[2017-03-01] MEDS: AMLODIPINE BESYLATE 5 MG TABLET PO SCH (08:58)
[2017-03-01] MEDS: NITROFURANTOIN/NITROFURAN MAC 100 MG CAPSULE PO SCH ×2 (08:58→20:57)
[2017-03-01] MEDS: GEMFIBROZIL 600 MG TABLET PO SCH (09:00)
--- NOTE | 2017-03-01 09:30 | NUR ---
RN NOTES REFUSED ACCUCHECK AND ALL AM MEDS.
[2017-03-01] MEDS: HALOPERIDOL LACTATE INJ 5 MG/ML VIAL IM PRN ×2 (09:39→12:49)
[2017-03-01 15:31] VITALS: BP 146/97
[2017-03-01 16:00] VITALS: BP 146/97
[2017-03-01 20:46] VITALS: BP 158/62
[2017-03-01] MEDS: INSULIN REGULAR, HUMAN 100 UNIT/ML 3 ML VIAL SQ PRN (21:55)
[2017-03-02] MEDS: BLOOD SUGAR DIAGNOSTIC 1 EACH STRIP IN SCH ×4 (07:30→21:08)
[2017-03-02 08:00] VITALS: BP 107/65
[2017-03-02] MEDS: BENAZEPRIL HCL 20 MG TABLET PO SCH (09:00)
[2017-03-02] MEDS: VALPROIC ACID 250 MG/5 ML UDC PO SCH ×2 (10:11→21:00)
[2017-03-02] MEDS: GEMFIBROZIL 600 MG TABLET PO SCH (10:11)
[2017-03-02] MEDS: DOCUSATE SODIUM 100 MG CAPSULE PO SCH (10:11)
[2017-03-02] MEDS: CALCIUM CARBONATE (1250) 500 MG TABLET PO SCH (10:12)
[2017-03-02] MEDS: METFORMIN 500 MG TABLET PO SCH ×2 (10:12→17:00)
[2017-03-02] MEDS: LEVOTHYROXINE SODIUM 50 MCG TABLET PO SCH (10:13)
[2017-03-02] MEDS: HALOPERIDOL 5 MG TABLET PO SCH ×3 (10:13→21:00)
[2017-03-02] MEDS: AMLODIPINE BESYLATE 5 MG TABLET PO SCH (10:13)
[2017-03-02] MEDS: NITROFURANTOIN/NITROFURAN MAC 100 MG CAPSULE PO SCH ×2 (10:13→21:00)
[2017-03-02] MEDS: HALOPERIDOL LACTATE INJ 5 MG/ML VIAL IM PRN ×3 (10:48→21:20)
[2017-03-02] MEDS: INSULIN REGULAR, HUMAN 100 UNIT/ML 3 ML VIAL SQ PRN ×3 (12:36→21:08)
--- NOTE | 2017-03-02 15:10 | NUR ---
called DR.cATALAN STEVE TO MAKE HER AWARE OF PTS EKG RESULTS PER PSYCHE . , ekg reviewed and communicated to psychaistrist. no s/s of chest pain or shortness of breath ekg showed a flutter with 4th degree block havent received new orders at this time.
--- NOTE | 2017-03-02 15:56 | NUR ---
boom stick worker spoke to Dorita from [facility] ([phone]) [place] [address]. who stated, that she was going to speak to the windows administrator Areli as they had some concerns with taking the patient back to their facility. boom stick worker informed Dorita that Areli had initially agreed to accept the patient back as long as she was stable, social service agency director also informed Dorita that they have exhausted her medicare coverage. boom stick worker asked Dorita to speak to Areli and to notify social service agency director today what their decision would be.
--- NOTE | 2017-03-02 16:07 | NUR ---
RICHIE previously contacted [facility] ([phone]) [place] [address] and spoke to Dorita regarding discharge plan for patient. Dorita reported that she would discuss patient's case with Areli and would call back; however RICHIE did not receive a call back. RICHIE contacted [place] and was informed that Iris and Areli were gone for the day. RICHIE provided facility with Dalia Maya's information and telephone # and asked that they call back tomorrow. Development System Efficiency Manager to follow up tomorrow to ensure patient is properly and safely discharged.
[2017-03-02 16:22] VITALS: BP 136/70
--- NOTE | 2017-03-02 17:30 | NUR ---
notified dr garcia that dr. james spoke to dr. amaya and its ok for pt to have haldol injection
[2017-03-02 20:00] VITALS: BP 125/69
[2017-03-02 20:18] VITALS: BP 125/69
--- NOTE | 2017-03-02 21:20 | NUR ---
RN NOTES: PATIENT REFUSED PO MEDS : VALPROIC ACID, MACROBID AND HALDOL. EXPLAINED RISKS AND BENEFITS, PATIENT KEPT REFUSING. WHEN SHE WAS TOLD THAT SHE WOULD HAVE TO BE GIVEN A HALDOL SHOT, SHE SAID THAT SHE WOULD LIKE THAT BETTER. HALDOL LACTATE 5 MG IM GIVEN TO R BUTTOCK. BLOOD SUGAR ALSO CHECKED AT 165 MG/DL, PATIENT REFUSED INSULIN, SAYING , "MY THRESHOLD IS 200". RISKS AND BENEFITS EXPLAINED, PATIENT STILL REFUSED.
[2017-03-03] MEDS: LEVOTHYROXINE SODIUM 50 MCG TABLET PO SCH (07:30)
[2017-03-03 08:00] VITALS: BP 113/71
[2017-03-03] MEDS: BLOOD SUGAR DIAGNOSTIC 1 EACH STRIP IN SCH ×4 (08:35→21:32)
[2017-03-03] MEDS: NITROFURANTOIN/NITROFURAN MAC 100 MG CAPSULE PO SCH ×2 (08:54→21:00)
[2017-03-03] MEDS: METFORMIN 500 MG TABLET PO SCH ×2 (08:54→17:00)
[2017-03-03] MEDS: HALOPERIDOL 5 MG TABLET PO SCH ×3 (08:54→21:00)
[2017-03-03] MEDS: BENAZEPRIL HCL 20 MG TABLET PO SCH (08:54)
[2017-03-03] MEDS: VALPROIC ACID 250 MG/5 ML UDC PO SCH ×2 (08:54→21:00)
[2017-03-03] MEDS: GEMFIBROZIL 600 MG TABLET PO SCH (08:54)
[2017-03-03] MEDS: DOCUSATE SODIUM 100 MG CAPSULE PO SCH (08:55)
[2017-03-03] MEDS: AMLODIPINE BESYLATE 5 MG TABLET PO SCH (08:55)
[2017-03-03] MEDS: CALCIUM CARBONATE (1250) 500 MG TABLET PO SCH (08:55)
[2017-03-03] MEDS: HALOPERIDOL LACTATE INJ 5 MG/ML VIAL IM PRN ×3 (10:14→21:20)
--- NOTE | 2017-03-03 15:25 | NUR ---
RICHIE contacted [facility] ([phone]) [place] [address] and spoke to Dorita regarding discharge plan for patient. Dorita reported that they have concerns taking the patient back as she is not med complaint. steamtable worker informed Dorita that she initially spoke to Areli who stated they would take patient back when patient was stable. Per Dorita, she needs confirmation that patient is stable. Dorita stated that she is willing to work with social services specialist and stated, "she is are patient, but we do have concerns. If she is stable we will take her back, we are not trying to dump the patient." steamtable worker will follow-up with assigned psychiatrist Dr. Kwon and will follow-up with Dorita.
--- NOTE | 2017-03-03 15:29 | NUR ---
delivery sales worker attempted to contact patient's son/conservator Rajesh Johnson , regarding patient refusing medication. However, he was unavailable. delivery sales worker left him a voicemail regarding patient's treatment and asked for a call back. delivery sales worker will follow-up.
[2017-03-03 15:41] VITALS: BP_SYST 117; BP_SYST 139; BP_DIAS 60; BP_DIAS 80
[2017-03-03] MEDS ORDERED: HALOPERIDOL DECANOATE IM 100 MG/ML AMPUL IM ONE (17:30)
--- NOTE | 2017-03-03 18:00 | NUR ---
DR. CALDERÓN IN-HALDOL DECANOATE ORDERED.HAS ONE TO ONE SITTER.CONT, TO REFUSE ORAL MEDS SO HALDOL INJECTION GIVEN.
--- NOTE | 2017-03-03 18:42 | NUR ---
RN-CO: PATIENT IS NO LONGER CLIMBING OUT OF BED. DISCONTINUED 1:1.
--- NOTE | 2017-03-03 19:16 | NUR ---
RN-CO: DR CALDERÓN ORDERED 1:1 FOR TONIGHT ONLY.
[2017-03-03 20:00] VITALS: BP 128/78
[2017-03-03 20:01] VITALS: BP 128/78
[2017-03-03] MEDS: INSULIN REGULAR, HUMAN 100 UNIT/ML 3 ML VIAL SQ PRN (21:32)
--- NOTE | 2017-03-03 21:39 | NUR ---
ALL PO MEDS DUE AT HS REFUSED BY THE PT DESPITE EXPLAINING RISKS AND BENEFITS OFFERED 3 TIMES PER PT SHE DOESNT NEED IT STILL REFUSED MD FOLLOWING THIS PT MADE AWARE.
--- NOTE | 2017-03-03 21:41 | NUR ---
HALDOL IM 5MG ORDERED WAS GIVEN PT TOLERATED WELL PT REFUSES PO MEDS
--- NOTE | 2017-03-04 06:45 | NUR ---
GPS CLOSING NOTES RESTING IN BED, TOLERATING ROOM AIR 99%, IN STABLE CONDITION. NO S/S OF DISTRESS, KEPT CLEAN AND DRY AND COMFORTABLE, FREQUENT VISUAL CHECK EVERY 2 HOURS FOR SAFETY, NEEDS ATTENDED AND ANTICIPATED. NURSING CARE RENDERED. ON LOW BED AT ALL TIMES. SAFE HAZARD FREE ENVIRONMENT.
[2017-03-04] MEDS: LEVOTHYROXINE SODIUM 50 MCG TABLET PO SCH (07:30)
[2017-03-04 08:00] VITALS: BP 112/62
[2017-03-04] MEDS: DOCUSATE SODIUM 100 MG CAPSULE PO SCH (08:10)
[2017-03-04] MEDS: VALPROIC ACID 250 MG/5 ML UDC PO SCH (08:10)
[2017-03-04] MEDS: BLOOD SUGAR DIAGNOSTIC 1 EACH STRIP IN SCH ×4 (08:10→22:17)
[2017-03-04] MEDS: GEMFIBROZIL 600 MG TABLET PO SCH (08:11)
[2017-03-04] MEDS: NITROFURANTOIN/NITROFURAN MAC 100 MG CAPSULE PO SCH (08:11)
[2017-03-04] MEDS: METFORMIN 500 MG TABLET PO SCH ×2 (08:11→17:00)
[2017-03-04] MEDS: BENAZEPRIL HCL 20 MG TABLET PO SCH (08:11)
[2017-03-04] MEDS: HALOPERIDOL 5 MG TABLET PO SCH ×2 (08:11→22:00)
[2017-03-04] MEDS: AMLODIPINE BESYLATE 5 MG TABLET PO SCH (08:12)
[2017-03-04] MEDS: CALCIUM CARBONATE (1250) 500 MG TABLET PO SCH (08:12)
--- NOTE | 2017-03-04 09:00 | NUR ---
refusing am meds-had haldol injection.
[2017-03-04] MEDS: HALOPERIDOL LACTATE INJ 5 MG/ML VIAL IM PRN ×2 (09:09→22:15)
--- NOTE | 2017-03-04 12:30 | NUR ---
dr. garcia aware pt. refusing meds.
[2017-03-04 16:12] VITALS: BP 141/86
--- NOTE | 2017-03-04 16:22 | NUR ---
RN-CO: PATIENT IS SOMEWHAT BETTER, NOT CLIMBING OUT OF BED, REDIRECTABLE. SHE IS COMPLIAT WITH MEDICATIONS AND TREATMENT.
--- NOTE | 2017-03-04 18:44 | NUR ---
no change in status
[2017-03-04 20:04] VITALS: BP 136/78
[2017-03-04] MEDS: INSULIN REGULAR, HUMAN 100 UNIT/ML 3 ML VIAL SQ PRN (22:03)
--- NOTE | 2017-03-04 22:35 | NUR ---
2200 Patient refused po Haldol pt is conserved Haldol 5mg IM administrated.
[2017-03-05 07:16] LABS: BASOPHILS % (AUTO) 0.3 % (0.0-2.0); EOSINOPHILS # (AUTO) 0.1 /CMM (0.0-0.7); EOSINOPHILS % (AUTO) 0.5 % (0.0-6.0); HEMATOCRIT 38 % (33-45); HEMOGLOBIN 12.9 g/dL (11.5-14.8); LYMPHOCYTES # (AUTO) 2.9 /CMM (0.8-4.8); LYMPHOCYTES % (AUTO) 27.4 % (20.0-44.0); MEAN CORPUSCULAR HEMOGLOBIN 31 PG (26.0-33.0); MEAN CORPUSCULAR HGB CONC 34 g/dl (31.0-36.0); MEAN CORPUSCULAR VOLUME 89 fL (82-100); MONOCYTES # (AUTO) 2.3 /CMM (0.1-1.30); MONOCYTES % (AUTO) 21.2 % (2.0-12.0); NEUTROPHILS # (AUTO) 5.4 /CMM (1.8-8.9); NEUTROPHILS % (AUTO) 50.6 % (43.0-81.0); PLATELET COUNT (AUTO) 117 /CMM (150-450); RDW COEFFICIENT OF VARIATION 13.7 (11.5-15.0); RED BLOOD CELL COUNT(AUTO) 4.24 MIL/uL (4.0-5.2); WHITE BLOOD COUNT (AUTO) 10.7 K/uL (4.3-11.0)
[2017-03-05 07:24] LABS: CALCIUM, SERUM 8.5 mg/dL (8.5-10.1); CARBON DIOXIDE 28 mmol/L (21-32); CHLORIDE 109 mmol/L (98-107); CREATININE 0.8 mg/dL (0.6-1.3); GLUCOSE 128 mg/dL (74-106); POTASSIUM 3.7 mmol/L (3.5-5.1); SODIUM SERUM 147 mmol/L (136-145); UREA NITROGEN, BLOOD 14 mg/dL (7-18)
[2017-03-05] MEDS: BLOOD SUGAR DIAGNOSTIC 1 EACH STRIP IN SCH ×4 (07:46→22:05)
[2017-03-05 08:00] VITALS: BP 131/65
[2017-03-05 08:18] VITALS: BP 131/65
[2017-03-05] MEDS: AMLODIPINE BESYLATE 5 MG TABLET PO SCH (09:00)
[2017-03-05] MEDS: DOCUSATE SODIUM 100 MG CAPSULE PO SCH (09:00)
[2017-03-05] MEDS: BENAZEPRIL HCL 20 MG TABLET PO SCH (09:00)
[2017-03-05] MEDS: GEMFIBROZIL 600 MG TABLET PO SCH (09:00)
[2017-03-05] MEDS: HALOPERIDOL 5 MG TABLET PO SCH ×2 (09:25→21:00)
[2017-03-05] MEDS: LEVOTHYROXINE SODIUM 50 MCG TABLET PO SCH (09:25)
[2017-03-05] MEDS: CALCIUM CARBONATE (1250) 500 MG TABLET PO SCH (09:25)
[2017-03-05] MEDS: METFORMIN 500 MG TABLET PO SCH ×2 (09:25→17:17)
[2017-03-05 10:24] LABS: BAND % (MANUAL) 1 % (0.0-5.0); LYMPHOCYTES % (MANUAL) 15 % (16-48); MONOCYTES % (MANUAL) 20 % (0-11.0); NEUTROPHILS % (MANUAL) 64 (42-76)
[2017-03-05] MEDS: INSULIN REGULAR, HUMAN 100 UNIT/ML 3 ML VIAL SQ PRN ×2 (11:41→17:57)
[2017-03-05 15:35] VITALS: BP 120/60
[2017-03-05 16:00] VITALS: BP 120/60
--- NOTE | 2017-03-05 16:08 | NUR ---
RICHIE contacted [facility] ([phone]) [place] [address] and spoke to Areli who stated that they do not feel comfortable taking the patient back and can accept her back to the facility.
--- NOTE | 2017-03-05 16:09 | NUR ---
Sw worker faxed inquiry to: [facility] (phone:[phone]/ fax: [phone]) [address] [place] [address]. [facility] (phone: [phone]/ fax: [phone]) [address] [place] [address] [facility] (phone:[phone]/ ) [address] [place] [address] [facility] ( / ) [address] [place] [address]. remelt worker will follow-up.
[2017-03-05 20:00] VITALS: BP 132/58
[2017-03-05] MEDS: HALOPERIDOL LACTATE INJ 5 MG/ML VIAL IM PRN (22:02)
--- NOTE | 2017-03-05 22:03 | NUR ---
PT REFUSED HALDOL 5MG PO. OFFER 3X. EXPLAIN THE RISK AND BENEFITS. PT STILL REFUSED. HALDOL 5MG IM GIVEN ORDERED. WILL CONTINUE TO MONITOR.
[2017-03-06] MEDS: LEVOTHYROXINE SODIUM 50 MCG TABLET PO SCH (07:30)
[2017-03-06] MEDS: BLOOD SUGAR DIAGNOSTIC 1 EACH STRIP IN SCH ×4 (07:55→22:13)
[2017-03-06 08:00] VITALS: BP 129/73
[2017-03-06] MEDS: DOCUSATE SODIUM 100 MG CAPSULE PO SCH (09:08)
[2017-03-06] MEDS: AMLODIPINE BESYLATE 5 MG TABLET PO SCH (09:09)
[2017-03-06] MEDS: METFORMIN 500 MG TABLET PO SCH ×2 (09:09→16:38)
[2017-03-06] MEDS: BENAZEPRIL HCL 20 MG TABLET PO SCH (09:09)
[2017-03-06] MEDS: GEMFIBROZIL 600 MG TABLET PO SCH (09:09)
[2017-03-06] MEDS: CALCIUM CARBONATE (1250) 500 MG TABLET PO SCH (09:09)
[2017-03-06] MEDS: HALOPERIDOL 5 MG TABLET PO SCH ×2 (09:10→21:48)
--- NOTE | 2017-03-06 09:19 | NUR ---
Dr. Kwon d/c the 1:1 and order for close monitoring. Pt. evaluated by the Physical Therapist and spoke to Dr. Kwon.
--- NOTE | 2017-03-06 11:18 | NUR ---
Social work Discharge Planning: This social worker school called [facility] [phone] and psoavinash with lisseth Mcgraw. She said both the DON and training administrator were gone today and asked the reason for this account underwriter's phone call. Advised her that [facility] PATI[facility] reported they were not willing to accept pt. back. She said she would text the training administrator and have her call on this account underwriter's cell phone. No call after several hours. Message left at [facility] at [phone]. Facility details were left on the voicemail per instruction and this account underwriter left her cell phone as a call back number.Sarai social worker school notified.
--- NOTE | 2017-03-06 11:28 | NUR ---
material requirements worker spoke to July from [facility] ( / ) [address] [place] [address]. who stated that they cannot take the patient at this time, as patient has exhausted her Medicare coverage days.
--- NOTE | 2017-03-06 11:29 | NUR ---
jordan worker faxed inquiry to [facility] (fax: [phone]/ ) [address], [place] [address]. jordan worker will follow-up.
--- NOTE | 2017-03-06 12:05 | NUR ---
Discharge planning note: Received call from Jose J FERRARA [phone]. She said she heard we were calling [employer]. She asked for patient's chart to be faxed to [facility] as she is trying to find another facility that will accept the pt. Dalia PATIÑO agreed to fax a packet to her.
[2017-03-06] MEDS: INSULIN REGULAR, HUMAN 100 UNIT/ML 3 ML VIAL SQ PRN (12:57)
--- NOTE | 2017-03-06 13:29 | NUR ---
Discharge planning note: Received phone call from [facility] at 1250 ([phone]) . She agreed to accept pt back on Thursday. Sarai PATIÑO agreed to arrange discharge and advise son, conservator of discharge.
--- NOTE | 2017-03-06 14:57 | NUR ---
Discharge Planning Note: RICHIE faxed over the requested progress notes to [facility] ([phone]) [place] [address] / fax number [phone].
--- NOTE | 2017-03-06 14:59 | NUR ---
RICHIE called and left a voicemail for pt's conservator/son Rajesh Johnson informing him of the discharge plan. RICHIE asked Rajesh to call her back as soon as he was able to.
[2017-03-06 16:01] VITALS: BP 144/98
[2017-03-06 20:00] VITALS: BP 146/86
[2017-03-07] MEDS: LEVOTHYROXINE SODIUM 50 MCG TABLET PO SCH (07:30)
[2017-03-07 07:40] VITALS: BP 114/52
[2017-03-07] MEDS: BLOOD SUGAR DIAGNOSTIC 1 EACH STRIP IN SCH ×4 (08:23→21:57)
[2017-03-07] MEDS: CALCIUM CARBONATE (1250) 500 MG TABLET PO SCH (09:00)
[2017-03-07] MEDS: METFORMIN 500 MG TABLET PO SCH ×2 (09:00→17:00)
[2017-03-07] MEDS: BENAZEPRIL HCL 20 MG TABLET PO SCH (09:00)
[2017-03-07] MEDS: HALOPERIDOL 5 MG TABLET PO SCH ×2 (09:00→21:00)
[2017-03-07] MEDS: DOCUSATE SODIUM 100 MG CAPSULE PO SCH (09:00)
[2017-03-07] MEDS: AMLODIPINE BESYLATE 5 MG TABLET PO SCH (09:00)
[2017-03-07] MEDS: GEMFIBROZIL 600 MG TABLET PO SCH (09:00)
[2017-03-07] MEDS: INSULIN REGULAR, HUMAN 100 UNIT/ML 3 ML VIAL SQ PRN (09:52)
--- NOTE | 2017-03-07 09:57 | NUR ---
HEALTH CARE SANITARY TECHNICIAN NOTES Patient blood sugar was 173mg/dl 3 units of r insulin given as ordered.
[2017-03-07] MEDS: HALOPERIDOL LACTATE INJ 5 MG/ML VIAL IM PRN ×2 (10:07→21:49)
--- NOTE | 2017-03-07 10:30 | NUR ---
SALES CONTRACTOR-NOTES PATIENT REFUSED ALL P.O MEDICATIONS INCLUDING HALDOL. PATIENT STATED" GIVE ME THE SHOT". HALDOL 5MG IM GIVEN ORDERED. GIVEN AT LEFT DELTOID. WELL TOLERATED.
--- NOTE | 2017-03-07 13:14 | NUR ---
DRY ROOM ATTENDANT-NOTES PATIENT BLOOD SUGAR WAS 122MG/DL, NO COVERAGE GIVEN.
[2017-03-07 16:00] VITALS: BP 141/74
--- NOTE | 2017-03-07 17:30 | NUR ---
SHASHI-NOTES PATIENT BLOOD SUGAR WAS 127MG/DL, NO COVERAGE GIVEN. Addendum: 03/07/17 at 1809 by JESSE HUIZAR LVN CORRECTIONS ON MY EARLIER NOTES. PATIENT BLOOD SUGAR WAS 129MG/DL
[2017-03-07 20:00] VITALS: BP 145/74
--- NOTE | 2017-03-07 21:58 | NUR ---
GPS RN NOTES PATIENT REFUSED ORAL HALDOL 5MG. HALDOL 5MG IM GIVEN INSTEAD PER PATIENT'S CHOICE.
[2017-03-08] MEDS: LEVOTHYROXINE SODIUM 50 MCG TABLET PO SCH (07:30)
[2017-03-08 08:08] VITALS: BP 137/73
[2017-03-08] MEDS: BLOOD SUGAR DIAGNOSTIC 1 EACH STRIP IN SCH ×4 (08:28→22:08)
[2017-03-08] MEDS: GEMFIBROZIL 600 MG TABLET PO SCH (08:29)
[2017-03-08] MEDS: DOCUSATE SODIUM 100 MG CAPSULE PO SCH (08:29)
[2017-03-08] MEDS: BENAZEPRIL HCL 20 MG TABLET PO SCH (08:29)
[2017-03-08] MEDS: HALOPERIDOL 5 MG TABLET PO SCH ×2 (08:29→21:00)
[2017-03-08] MEDS: METFORMIN 500 MG TABLET PO SCH ×2 (08:29→17:00)
[2017-03-08] MEDS: CALCIUM CARBONATE (1250) 500 MG TABLET PO SCH (08:30)
[2017-03-08] MEDS: AMLODIPINE BESYLATE 5 MG TABLET PO SCH (08:30)
[2017-03-08] MEDS: HALOPERIDOL LACTATE INJ 5 MG/ML VIAL IM PRN (09:37)
--- NOTE | 2017-03-08 09:38 | NUR ---
GPS RN NOTE: PATIENT REFUSED AM P.O MEDICATIONS INCLUDING HALDOL. PATIENT STATED" GIVE ME THE SHOT". HALDOL 5MG IM GIVEN ORDERED. WELL TOLERATED,WILL CONTINUE MONITORING.
[2017-03-08 16:00] VITALS: BP 139/74
[2017-03-08 19:36] VITALS: BP 132/75
--- NOTE | 2017-03-08 21:48 | NUR ---
RN NOTES PATIENT REFUSED HALDOL 5MG PO ADMINISTRATION X3. PATIENT EDUCATION REINFORCED. WILL CONTINUE TO MONITOR.
--- NOTE | 2017-03-08 22:00 | NUR ---
RN NOTES PATIENT REFUSED TO HAVE PHOTOS TAKEN OF SKIN PROBLEMS, WHEN ASKED PATIENT STATES "NO PICTURES". WILL REATTEMPT AND CONTINUE TO MONITOR.
[2017-03-08] MEDS: INSULIN REGULAR, HUMAN 100 UNIT/ML 3 ML VIAL SQ PRN (22:09)
--- NOTE | 2017-03-08 22:09 | NUR ---
RN NOTES PATIENT REFUSED REGULAR INSULIN COVERAGE FOR BS 156, STATES SHE DOESN'T WANT TO TAKE IT. PATIENT EDUCATION REINFORCED. WILL CONTINUE TO MONITOR.
[2017-03-09] MEDS: LEVOTHYROXINE SODIUM 50 MCG TABLET PO SCH (07:30)
[2017-03-09 08:10] VITALS: BP 149/78
--- NOTE | 2017-03-09 08:14 | NUR ---
SW made a second attempt to get in contact with pt's conservator/son Rajesh Johnson to inform him of the discharge plan. RICHIE left a voicemail with contact information.
--- NOTE | 2017-03-09 08:43 | NUR ---
Discharge Planning: SW received a call from pt's conservator/son Rajesh Johnson who stated that he was in agreement with his mother going to [place]. He approved the discharge plan. RICHIE will arrange transportation.
[2017-03-09] MEDS: BLOOD SUGAR DIAGNOSTIC 1 EACH STRIP IN SCH ×2 (08:59→12:00)
[2017-03-09] MEDS: BENAZEPRIL HCL 20 MG TABLET PO SCH ×2 (09:00→13:04)
[2017-03-09] MEDS: HALOPERIDOL 5 MG TABLET PO SCH (09:00)
[2017-03-09] MEDS: CALCIUM CARBONATE (1250) 500 MG TABLET PO SCH (09:00)
[2017-03-09] MEDS: METFORMIN 500 MG TABLET PO SCH (09:00)
[2017-03-09] MEDS: GEMFIBROZIL 600 MG TABLET PO SCH (09:00)
[2017-03-09] MEDS: DOCUSATE SODIUM 100 MG CAPSULE PO SCH (09:00)
[2017-03-09] MEDS: AMLODIPINE BESYLATE 5 MG TABLET PO SCH ×2 (09:00→13:05)
--- NOTE | 2017-03-09 10:16 | NUR ---
Discharge Note: Patient will be discharged to [facility] ([phone]) [address] [place] [address]. Patients conservator/son Rajesh Johnson has approved the discharge plan and is aware that the discharge is set for today [03/09/17]. Patient will be transported via ambulance arranged by social media marketer through [employer], trip #[id number]. Patient will be seen by her chemical research technician, Dr. Brand [address] [facility] [address] [place] [address] /[phone] at the facility on Saturday 03/10 at noon. Patient will be seen by her psychiatrist, Dr. Quan [address] [facility] [address] [place] [address] / [phone] at the facility on Sunday 03/11 at 10:00am.
[2017-03-09 13:05] VITALS: BP 162/90
--- NOTE | 2017-03-09 13:09 | NUR ---
gps/rn patient refused bs check x 3, explained risks and benefits, will continue to monitor
--- NOTE | 2017-03-09 13:25 | NUR ---
GPS/RN PATIENT CLEARED FOR DISCHARGE TO [facility] [place] BY DR CALDERÓN AND DR SANTIAGO. MEDICATIONS RECONCILED BY BOTH DR'S, DISCHARGE PACKET, AFTERCARE PLAN AND MEDICATIONS EXPLAINED TO PATIENT, VERBALIZED UNDERSTANDING. BELONGINGS RETURNED, PATIENT REFUSED D/C PHOTOS X 3, EXPLAINED RISKS AND BENEFITS. REPORT CALLED TO FACILITY, SPOKE WITH CRISTY, PATIENT DENIES SI/HI/AH UPON DISCHARGE, PSYCHIATRIC TREATMENT PLANS MET, LEFT UNIT CALM, COOPERATIVE NO DISTRESS WITH TRANSPORT AT SIDE.
== END 2017-03-09 13:25 | DRG 885 ==
LOC: ER 21:45 → GPS 23:37
PROVIDERS: ADMIT Psychiatry & Neurology Psychosomatic Medicine; ATTEND Family Medicine
DX: F25.9 Schizoaffective disorder, unspecified (principal); E11.65 Type 2 diabetes mellitus with hyperglycemia; D69.6 Thrombocytopenia, unspecified; F03.90 Unspecified dementia, unspecified severity, without behavioral disturbance, psychotic disturbance, mood disturbance, and anxiety; F29 Unspecified psychosis not due to a substance or known physiological condition; N39.0 Urinary tract infection, site not specified; B96.20 Unspecified Escherichia coli [E. coli] as the cause of diseases classified elsewhere; E03.9 Hypothyroidism, unspecified; E78.5 Hyperlipidemia, unspecified; I10 Essential (primary) hypertension; F41.9 Anxiety disorder, unspecified; Z72.0 Tobacco use; F32.9 Major depressive disorder, single episode, unspecified; Z79.84 Long term (current) use of oral hypoglycemic drugs
CPT/HCPCS: 36415; 80048-TC; 80053-TC; 80061-TC; 80076-TC; 80164-TC; 80305; 81000-TC; 82962-TC; 83735-TC; 84100-TC; 85025-TC; 87081-TC; 87086-TC; 87186-TC; A4606; G0480; J0696; J1630; J1631; J1815; J2060; Z7610